=== PATIENT | male | born 1930 | race Caucasian/White ===

== ENCOUNTER 2019-03-30 15:52 | Outpatient (CLI) | payer MEDICARE ==
--- NOTE | 2019-03-30 16:36 | ULT ---
EXAM: US Testicular W Doppler PROVIDED CLINICAL HISTORY: Spermatocele COMPARISON: None FINDINGS: Right testicle measures about 3.2 x 4.4 x 2 cm and demonstrates a normal grayscale sonographic appear ance. The right epididymis demonstrates cystic structures the smaller of which measures about 1 cm and the larger of which measures at least 4.7 cm. The left testicle measures about 3 x 4.2 x 2.4 cm and demonstrates a normal grayscale sonographic livier earance. The left epididymis appears normal. There is a small left hydrocele. Color Doppler and spectral analysis of the testicular waveforms demonstrates flow bilaterally. No emiliano dence for varicocele. IMPRESSION: Right epididymal head cysts, including a large cyst measuring approximately 4.7 cm
== END 2019-03-30 15:53 | disposition home or self-care (01) ==
LOC: ULT 15:52
PROVIDERS: ATTEND Urology
DX: N43.40 Spermatocele of epididymis, unspecified (principal); N39.41 Urge incontinence; N50.3 Cyst of epididymis
CPT/HCPCS: 76870; 93976